=== PATIENT | female | born 1985 | race Caucasian/White ===

== ENCOUNTER 2017-01-17 15:11 | Emergency (ER) | payer OTHER ==
[~2017-01-17] VITALS: Ht 162.6 cm; Wt 64.6 kg
[2017-01-17 15:23] VITALS: BP 122/85
--- NOTE | 2017-01-17 15:27 | NUR ---
Patient ambulated to bed 06.
--- NOTE | 2017-01-17 15:43 | NUR ---
31 F BIB SELF WITH THE C/O 3/10 "PRESSURE" INTERMITTENT FOREHEAD, POSTERIOR HEAD, POSTERIOR NECK, AND BL UPPER SHOULDER PAIN X 5 DAYS WITH NAUSEA, SENSITIVE TO LIGHT, NOISE, DIZZINESS; PT ALSO REPORTS OF BL EAR PAIN WELL; PT AOX4, RR ARE EVEN AND UNLABORED; PT DENIES ANY RECENT FEVERS OR CHILL; NAD; PT POSITIONED FOR COMFORT; ER MD AWARE OF PT STATUS; WILL CONTINUE TO MONITOR
[2017-01-17 16:06] VITALS: BP 124/75
--- NOTE | 2017-01-17 16:06 | NUR ---
Patient discharged with v/s stable. Written and verbal after care instructions given and explained. Patient alert, oriented and verbalized understanding of instructions. Ambulatory with steady gait. All questions addressed prior to discharge. ID band removed. Patient advised to follow up with PMD. Rx of Reglan and Naprosyn given. Patient educated on indication of medication including possible reaction and side effects. Opportunity to ask questions provided and answered.
== END 2017-01-17 16:06 | disposition home or self-care (01) ==
LOC: MED 15:11
DX: G43.909 Migraine, unspecified, not intractable, without status migrainosus (principal); Z88.1 Allergy status to other antibiotic agents
CPT/HCPCS: 81002; 81025; 99283

== ENCOUNTER 2021-12-20 09:53 | Emergency (ER) | payer OTHER ==
[~2021-12-20] VITALS: Ht 160 cm; Wt 73.6 kg
[2021-12-20 10:03] VITALS: BP 123/77
[2021-12-20] MEDS ORDERED: KETOROLAC 30 MG/ML VIAL IM ONE (11:30)
[2021-12-20 12:02] LABS: BASOPHILS % (AUTO) 0.5 % (0.0-2.0); EOSINOPHILS # (AUTO) 0.1 K/uL (0-0.4); HEMATOCRIT 36.9 % (36-48); HEMOGLOBIN 12.1 g/dL (12.0-16.0); LYMPHOCYTES # (AUTO) 1.4 K/uL (2.5-16.5); MEAN CORPUSCULAR HEMOGLOBIN 28 pg (27-31); MEAN CORPUSCULAR HGB CONC 33 g/dL (33-37); MONOCYTES # (AUTO) 0.5 K/uL (0.8-1.0); MONOCYTES % (AUTO) 6.5 % (1.7-9.3); NEUTROPHILS # (AUTO) 5.7 K/uL (1.8-7.7); PLATELET COUNT (AUTO) 331 K/uL (140-450); RED BLOOD CELL COUNT(AUTO) 4.29 MIL/uL (4.20-5.40); RED CELL DISTRIBUTION WIDTH 15.7 % (11.6-13.7); WHITE BLOOD COUNT (AUTO) 7.6 K/uL (4.8-10.8)
[2021-12-20 12:26] LABS: ALBUMIN 3.3 g/dL (3.4-5.0); ANION GAP 14.3 (8-16); CARBON DIOXIDE 24.1 mmol/L (21-32); CREATININE 0.7 mg/dL (0.6-1.3); POTASSIUM 3.4 mmol/L (3.5-5.1); TOTAL BILIRUBIN 0.2 mg/dL (0.0-1.0)
[2021-12-20 13:17] VITALS: BP 110/66
== END 2021-12-20 13:17 | disposition home or self-care (01) ==
LOC: MED 09:53
DX: R10.84 Generalized abdominal pain (principal); R19.7 Diarrhea, unspecified
CPT/HCPCS: 36415; 80053; 81002; 81025; 83690; 85025; 99285; J1885

== ENCOUNTER 2022-01-10 20:58 | Emergency (ER) | payer OTHER ==
--- NOTE | 2022-01-10 21:10 | NUR ---
PATIENT LEFT ER WITHOUT BEING; PATIENT WAS NOT TRIAGED
--- NOTE | 2022-01-10 21:29 | NUR ---
PATIENT LEFT WITHOUT BEING SEEN BY DR. SALGADO. NO FURTHER CARE PROVIDED FOR PATIENT. PATIENT ALSO DID NOT GET TRIAGED BY RN PRIOR TO LEAVING
== END 2022-01-10 21:10 | disposition left against medical advice (07) ==
LOC: MED 20:58
DX: R31.9 Hematuria, unspecified (principal); Z53.21 Procedure and treatment not carried out due to patient leaving prior to being seen by health care provider

== ENCOUNTER 2022-03-21 16:32 | Emergency (ER) | payer OTHER ==
[~2022-03-21] VITALS: Ht 162.6 cm; Wt 69.9 kg
[2022-03-21 16:39] VITALS: BP 117/77
--- NOTE | 2022-03-21 17:13 | NUR ---
LAB AT BEDSIDE
[2022-03-21 17:22] LABS: BASOPHILS # (AUTO) 0.1 K/uL (0.00-0.22); EOSINOPHILS # (AUTO) 0.1 K/uL (0-0.4); EOSINOPHILS % (AUTO) 1.1 % (0.0-4.0); HEMATOCRIT 34.9 % (36-48); HEMOGLOBIN 11.7 g/dL (12.0-16.0); LYMPHOCYTES # (AUTO) 1.7 K/uL (2.5-16.5); MEAN CORPUSCULAR HEMOGLOBIN 28 pg (27-31); MEAN CORPUSCULAR HGB CONC 33 g/dL (33-37); MEAN CORPUSCULAR VOLUME 85.1 fL (80-94); MONOCYTES # (AUTO) 0.7 K/uL (0.8-1.0); MONOCYTES % (AUTO) 7.4 % (1.7-9.3); NEUTROPHILS # (AUTO) 7.3 K/uL (1.8-7.7); NEUTROPHILS % (AUTO) 73.5 % (42.2-75.2); PLATELET COUNT (AUTO) 374 K/uL (140-450); RED CELL DISTRIBUTION WIDTH 17.2 % (11.6-13.7); WHITE BLOOD COUNT (AUTO) 9.9 K/uL (4.8-10.8)
[2022-03-21 17:23] LABS: BILIRUBIN,URINE NEGATIVE (NEGATIVE); BLOOD, URINE 2+ (NEGATIVE); COLOR,URINE YELLOW (YELLOW); LEUKOCYTE ESTERASE ,URINE NEGATIVE (NEGATIVE); NITRITE, URINE NEGATIVE (NEGATIVE); UGLUCOSE NEGATIVE (NEGATIVE)
[2022-03-21 17:28] LABS: APPEARANCE,URINE CLEAR (CLEAR)
--- NOTE | 2022-03-21 17:31 | NUR ---
36YO FEMALE PT C/O MILD VAGINAL BLEEDING [id number]. REPORTS SUDDEN CONSTANT ONSET W/ INTERMITTENT PELVIC CRAMPING. STATES USING ABOUT 2-3 TAMPONS A DAY. NOTES REGULAR MP LASTS ABOUT 4-5DAYS AND CURRENT POSSIBLE . LMP 02/26/22 G0. DENIES TAKING MEDICATION, N/V/D, CHEST PAIN, SOB, FEVER OR CHILLS. PT AAOX4, NO VISIBLE DISTRESS. RESPIRATIONS EVEN AND UNLABORED. HX:DENIES ALLERGIES: AMOXICILLIN
[2022-03-21 17:43] LABS: PROTHROMBIN TIME 10.4 secs (10.8-13.4)
[2022-03-21 17:44] LABS: ALBUMIN 3.8 g/dL (3.4-5.0); ANION GAP 10.7 (8-16); CARBON DIOXIDE 29.9 mmol/L (21-32); CREATININE 0.6 mg/dL (0.6-1.3); POTASSIUM 3.6 mmol/L (3.5-5.1); TOTAL BILIRUBIN 0.2 mg/dL (0.0-1.0)
[2022-03-21 17:57] LABS: RBC,URINE NONE SEEN /HPF (0-5); WBC,URINE NONE SEEN /HPF (0-5)
[2022-03-21 21:30] VITALS: BP 121/79
--- NOTE | 2022-03-21 21:30 | NUR ---
Patient discharged with v/s stable. Written and verbal after care instructions given and explained. Patient verbalized understanding. Ambulatory with steady gait. All questions addressed prior to discharge. Advised to follow up with PMD.
== END 2022-03-21 21:30 | disposition home or self-care (01) ==
LOC: MED 16:32
DX: D25.9 Leiomyoma of uterus, unspecified (principal); N83.202 Unspecified ovarian cyst, left side; N83.201 Unspecified ovarian cyst, right side
CPT/HCPCS: 36415; 76856; 80053; 81001; 81025; 85025; 85610; 85730; 86886; 86900; 86901; 99284; Q0092

== ENCOUNTER 2022-08-16 14:55 | Emergency (ER) | payer OTHER ==
[~2022-08-16] VITALS: Ht 162.6 cm; Wt 71.7 kg
[2022-08-16 15:01] VITALS: BP 115/79
--- NOTE | 2022-08-16 15:38 | NUR ---
PT AMB TO BED 6
--- NOTE | 2022-08-16 15:56 | NUR ---
Pt bibs for lower back and groin pain x 5 days. Pt states she was recently dx with a UTI. Pt states she was not taking the medication at first because she "does not believe in it". But started taking antibiotics because her condition was worsenening. Pt states she has been improving but does still has pain. Pt is a/o x 4, vss, no ss of acute distress, breathing equal and unlabored, speech clear.
[2022-08-16 17:08] LABS: APPEARANCE,URINE CLEAR (CLEAR); BILIRUBIN,URINE NEGATIVE (NEGATIVE); BLOOD, URINE TRACE-I (NEGATIVE); COLOR,URINE YELLOW (YELLOW); LEUKOCYTE ESTERASE ,URINE NEGATIVE (NEGATIVE); NITRITE, URINE POSITIVE (NEGATIVE); UGLUCOSE NEGATIVE (NEGATIVE)
[2022-08-16 17:25] LABS: RBC,URINE 0-5 /HPF (0-5)
[2022-08-16] MEDS ORDERED: KEFSUS PO ×2 (17:43→18:19)
--- NOTE | 2022-08-16 17:49 | NUR ---
Patient discharged with v/s stable. Written and verbal after care instructions given and explained. Patient alert, oriented and verbalized understanding of instructions. Ambulatory with steady gait. All questions addressed prior to discharge. ID band removed. Patient advised to follow up with PMD. Pt aware of rx. Patient educated on indication of medication including possible reaction and side effects. Opportunity to ask questions provided and answered.
[2022-08-16 17:51] VITALS: BP 122/81
== END 2022-08-16 17:51 | disposition home or self-care (01) ==
LOC: MED 14:55
DX: N39.0 Urinary tract infection, site not specified (principal); Z88.1 Allergy status to other antibiotic agents; Z79.899 Other long term (current) drug therapy
CPT/HCPCS: 81001; 81025; 87086; 99283

== ENCOUNTER 2022-10-14 17:23 | Emergency (ER) | payer OTHER ==
[~2022-10-14] VITALS: Ht 160 cm; Wt 72.6 kg
[~2022-10-14 17:23] MED LIST: KEFSUS PO
[2022-10-14 17:37] VITALS: BP 120/70; PULSE 77; RESP 20; TEMP 97.1; O2SAT 99
--- NOTE | 2022-10-14 18:19 | NUR ---
PATIENT AMBULATED TO BED 8 W/STEADY GAIT.
[2022-10-14] MEDS ORDERED: KEFSUS PO (18:48)
== END 2022-10-14 19:06 | disposition home or self-care (01) ==
LOC: MED 17:23
DX: N39.0 Urinary tract infection, site not specified (principal); Z88.1 Allergy status to other antibiotic agents; Z79.899 Other long term (current) drug therapy
CPT/HCPCS: 81002; 81025; 99283

== ENCOUNTER 2023-04-07 14:44 | Emergency (ER) | payer OTHER ==
[~2023-04-07] VITALS: Ht 162.6 cm; Wt 77.1 kg
[2023-04-07 14:56] VITALS: BP 110/68; PULSE 97; RESP 16; TEMP 97.8; O2SAT 96
[2023-04-07 16:38] LABS: APPEARANCE,URINE SL CLOUDY (CLEAR); BILIRUBIN,URINE NEGATIVE (NEGATIVE); BLOOD, URINE TRACE-I (NEGATIVE); COLOR,URINE YELLOW (YELLOW); LEUKOCYTE ESTERASE ,URINE 1+ (NEGATIVE); NITRITE, URINE NEGATIVE (NEGATIVE); PROTEIN,URINE NEGATIVE (NEGATIVE); UGLUCOSE NEGATIVE (NEGATIVE); UROBILINOGEN,URINE 0.2 EU/dL (0.2 - 1)
[2023-04-07] MEDS ORDERED: METR-520 PO (16:52)
[2023-04-07] MEDS ORDERED: PYR100 PO (16:52)
[2023-04-07] MEDS ORDERED: CEPH250C16 PO (16:52)
[2023-04-07 17:11] LABS: BACTERIA,URINE 10-30 (MOD) /HPF (None Seen); SQUAMOUS EPITHELIAL CELL,UR 0-3 (FEW) /LPF (0-3 (FEW))
[2023-04-12] MEDS ORDERED: DOXY-690 PO (15:41)
== END 2023-04-07 17:08 | disposition home or self-care (01) ==
LOC: MED 14:44
DX: N76.0 Acute vaginitis (principal); B96.89 Other specified bacterial agents as the cause of diseases classified elsewhere; N30.00 Acute cystitis without hematuria; Z79.899 Other long term (current) drug therapy; Z79.2 Long term (current) use of antibiotics; Z88.0 Allergy status to penicillin
CPT/HCPCS: 36415; 81001; 81025; 87086; 87210; 87491; 99284

== ENCOUNTER 2023-06-01 11:02 | Emergency (ER) | payer OTHER ==
[~2023-06-01] VITALS: Ht 162.6 cm; Wt 77.1 kg
[~2023-06-01 11:02] MED LIST changes: +CEPH250C16 PO; +DOXY-690 PO; +METR-520 PO; +PYR100 PO
[2023-06-01 11:17] VITALS: BP 108/64; PULSE 83; RESP 16; TEMP 97.5; O2SAT 98
[2023-06-01] MEDS ORDERED: OMEP40EC23 PO (11:48)
[2023-06-01] MEDS ORDERED: METR-435 PO (11:48)
[2023-06-01] MEDS ORDERED: ONDA8TAB87 PO (11:48)
[2023-06-01] MEDS ORDERED: NITR100C7 PO (11:48)
[2023-06-01] MEDS: DICYCLOMINE HCL LIQUID 20 MG, ALUMINUM HYD/MAG/SIMETHICONE 30 ML, LIDOCAINE VISCOUS 2% ... PO ONE (11:55)
[2023-06-01] MEDS: ONDANSETRON 4 MG ODT PO ONE (11:56)
== END 2023-06-01 12:14 | disposition home or self-care (01) ==
LOC: MED 11:02
DX: R11.2 Nausea with vomiting, unspecified (principal); R10.13 Epigastric pain; N89.8 Other specified noninflammatory disorders of vagina; Z79.899 Other long term (current) drug therapy
CPT/HCPCS: 81025; 87491; 99283; Q0162

== ENCOUNTER 2023-07-21 20:43 | Emergency (ER) | payer OTHER ==
[~2023-07-21] VITALS: Ht 162.6 cm; Wt 79.8 kg
[~2023-07-21 20:43] MED LIST changes: +METR-435 PO; +NITR100C7 PO; +OMEP40EC23 PO; +ONDA8TAB87 PO
[2023-07-21 20:58] VITALS: BP 120/70; PULSE 86; RESP 16; TEMP 97.3; O2SAT 99
[2023-07-21 21:01] VITALS: BP 120/70; PULSE 86; RESP 16; TEMP 97.3; O2SAT 99
[2023-07-21 21:26] LABS: BASOPHILS # (AUTO) 0.1 K/uL (0.00-0.22); BASOPHILS % (AUTO) 0.7 % (0.0-2.0); EOSINOPHILS # (AUTO) 0.1 K/uL (0-0.4); EOSINOPHILS % (AUTO) 1.4 % (0.0-4.0); HEMATOCRIT 32.2 % (36-48); HEMOGLOBIN 10.4 g/dL (12.0-16.0); LYMPHOCYTES # (AUTO) 2.6 K/uL (2.5-16.5); LYMPHOCYTES % (AUTO) 29.1 % (20.5-51.1); MEAN CORPUSCULAR HEMOGLOBIN 26 pg (27-31); MEAN CORPUSCULAR HGB CONC 32 g/dL (33-37); MEAN CORPUSCULAR VOLUME 79.3 fL (80-94); MONOCYTES # (AUTO) 0.7 K/uL (0.8-1.0); MONOCYTES % (AUTO) 7.7 % (1.7-9.3); NEUTROPHILS # (AUTO) 5.5 K/uL (1.8-7.7); NEUTROPHILS % (AUTO) 61.1 % (42.2-75.2); PLATELET COUNT (AUTO) 306 K/uL (140-450); RED BLOOD CELL COUNT(AUTO) 4.06 MIL/uL (4.20-5.40); RED CELL DISTRIBUTION WIDTH 18.2 % (11.6-13.7); WHITE BLOOD COUNT (AUTO) 9.1 K/uL (4.8-10.8)
[2023-07-21 22:24] LABS: APPEARANCE,URINE CLEAR (CLEAR); BILIRUBIN,URINE NEGATIVE (NEGATIVE); BLOOD, URINE NEGATIVE (NEGATIVE); COLOR,URINE YELLOW (YELLOW); LEUKOCYTE ESTERASE ,URINE NEGATIVE (NEGATIVE); NITRITE, URINE NEGATIVE (NEGATIVE); PROTEIN,URINE NEGATIVE (NEGATIVE); UGLUCOSE NEGATIVE (NEGATIVE); UROBILINOGEN,URINE 0.2 EU/dL (0.2 - 1)
== END 2023-07-21 23:05 | disposition home or self-care (01) ==
LOC: MED 20:43
DX: O00.01 Abdominal pregnancy with intrauterine pregnancy (principal); O46.91 Antepartum hemorrhage, unspecified, first trimester; Z3A.01 Less than 8 weeks gestation of pregnancy; Z79.899 Other long term (current) drug therapy
CPT/HCPCS: 36415; 76817; 81003; 81025; 84702; 85025; 86900; 86901; 99284

== ENCOUNTER 2023-07-28 09:53 | Emergency (ER) | payer OTHER ==
[~2023-07-28] VITALS: Ht 162.6 cm; Wt 77.1 kg
[2023-07-28 09:59] VITALS: BP 110/72; PULSE 87; RESP 16; TEMP 97.4; O2SAT 100
[2023-07-28 10:38] LABS: BASOPHILS # (AUTO) 0.1 K/uL (0.00-0.22); EOSINOPHILS # (AUTO) 0.1 K/uL (0-0.4); EOSINOPHILS % (AUTO) 1.3 % (0.0-4.0); HEMATOCRIT 34.5 % (36-48); HEMOGLOBIN 11.2 g/dL (12.0-16.0); LYMPHOCYTES # (AUTO) 2.2 K/uL (2.5-16.5); LYMPHOCYTES % (AUTO) 23.7 % (20.5-51.1); MEAN CORPUSCULAR HEMOGLOBIN 26 pg (27-31); MEAN CORPUSCULAR HGB CONC 32 g/dL (33-37); MEAN CORPUSCULAR VOLUME 80.4 fL (80-94); MONOCYTES # (AUTO) 0.7 K/uL (0.8-1.0); MONOCYTES % (AUTO) 7.2 % (1.7-9.3); NEUTROPHILS # (AUTO) 6.2 K/uL (1.8-7.7); NEUTROPHILS % (AUTO) 66.8 % (42.2-75.2); PLATELET COUNT (AUTO) 309 K/uL (140-450); RED BLOOD CELL COUNT(AUTO) 4.29 MIL/uL (4.20-5.40); RED CELL DISTRIBUTION WIDTH 18.5 % (11.6-13.7); WHITE BLOOD COUNT (AUTO) 9.2 K/uL (4.8-10.8)
[2023-07-28 10:46] LABS: APPEARANCE,URINE CLEAR (CLEAR); BILIRUBIN,URINE NEGATIVE (NEGATIVE); BLOOD, URINE NEGATIVE (NEGATIVE); COLOR,URINE YELLOW (YELLOW); LEUKOCYTE ESTERASE ,URINE NEGATIVE (NEGATIVE); NITRITE, URINE NEGATIVE (NEGATIVE); PH,URINE 8.5 (5.0-9.0); PROTEIN,URINE NEGATIVE (NEGATIVE); UGLUCOSE NEGATIVE (NEGATIVE); UROBILINOGEN,URINE 0.2 EU/dL (0.2 - 1)
[2023-07-28] MEDS: NACL 0.9% 1,000 ML IV ONE (10:49)
[2023-07-28 10:58] LABS: ALBUMIN 3.4 g/dL (3.4-5.0); CALCIUM 8.9 mg/dL (8.5-10.1); CARBON DIOXIDE 25.8 mmol/L (21-32); CREATININE 0.7 mg/dL (0.6-1.3); INR 1.01 (0.8-1.2); PARTIAL THROMBOPLASTIN TIME 26.5 secs (22-35.6); POTASSIUM 3.8 mmol/L (3.5-5.1); PROTHROMBIN TIME 10.6 secs (10.8-13.4); TOTAL BILIRUBIN 0.3 mg/dL (0.0-1.0); TOTAL PROTEIN, SERUM 7.4 g/dL (6.4-8.2)
[2023-07-28 14:09] VITALS: BP 115/80; PULSE 85; RESP 16; TEMP 98.1; O2SAT 99
== END 2023-07-28 14:09 | disposition home or self-care (01) ==
LOC: MED 09:53
DX: O99.611 Diseases of the digestive system complicating pregnancy, first trimester (principal); D41.4 Neoplasm of uncertain behavior of bladder; O46.91 Antepartum hemorrhage, unspecified, first trimester; Z3A.01 Less than 8 weeks gestation of pregnancy; Z79.899 Other long term (current) drug therapy
CPT/HCPCS: 36415; 76705; 76801; 80053; 81003; 83690; 84702; 85025; 85610; 85730; 86886; 86900; 86901; 96360; 99284; Q0092; J7030

== ENCOUNTER 2023-08-10 04:15 | Emergency (ER) | payer OTHER ==
[~2023-08-10] VITALS: Ht 162.6 cm; Wt 76.2 kg
[2023-08-10 04:30] VITALS: BP 128/71; PULSE 76; RESP 14; TEMP 97.3; O2SAT 98
[2023-08-10] MEDS ORDERED: DOXY1TCP PO (05:06)
[2023-08-10 05:10] VITALS: BP 128/71; PULSE 76; RESP 14; TEMP 97.3; O2SAT 98
== END 2023-08-10 05:10 | disposition home or self-care (01) ==
LOC: MED 04:15
DX: O20.0 Threatened abortion (principal); R53.1 Weakness; Z3A.08 8 weeks gestation of pregnancy; Z79.2 Long term (current) use of antibiotics; Z79.899 Other long term (current) drug therapy
CPT/HCPCS: 81002; 81025; 99283

== ENCOUNTER 2023-12-30 20:38 | Emergency (ER) | payer OTHER ==
[~2023-12-30] VITALS: Ht 162.6 cm; Wt 78.0 kg
[~2023-12-30 20:38] MED LIST changes: +DOXY1TCP PO
[2023-12-30 21:07] VITALS: BP 100/62; PULSE 87; RESP 20; TEMP 99.1; O2SAT 99
[2023-12-30 21:35] LABS: APPEARANCE,URINE CLEAR (CLEAR); BILIRUBIN,URINE NEGATIVE (NEGATIVE); BLOOD, URINE NEGATIVE (NEGATIVE); COLOR,URINE YELLOW (YELLOW); LEUKOCYTE ESTERASE ,URINE NEGATIVE (NEGATIVE); NITRITE, URINE NEGATIVE (NEGATIVE); PH,URINE 7.5 (5.0-9.0); PROTEIN,URINE NEGATIVE (NEGATIVE); UGLUCOSE NEGATIVE (NEGATIVE); UROBILINOGEN,URINE 0.2 EU/dL (0.2 - 1)
[2023-12-30] MEDS: ONDANSETRON 4 MG ODT PO ONE (21:43)
[2023-12-30 21:49] VITALS: BP 100/62; PULSE 87; RESP 20; TEMP 99.1; O2SAT 99
== END 2023-12-30 22:02 | disposition home or self-care (01) ==
LOC: MED 20:38
DX: O21.2 Late vomiting of pregnancy (principal); O99.612 Diseases of the digestive system complicating pregnancy, second trimester; R19.7 Diarrhea, unspecified; Z3A.28 28 weeks gestation of pregnancy; Z79.899 Other long term (current) drug therapy
CPT/HCPCS: 81003; 81025; 99283; Q0162